=== PATIENT | male | born 1965 | race Caucasian/White ===

== ENCOUNTER 2016-07-27 00:46 | Emergency (ER) | payer OTHER ==
[~2016-07-27 00:46] MED LIST: ANT12.5 PO
[2016-07-27 01:58] LABS: BASOPHIL % 1.6 % (0-2); PLATELET COUNT 160 x10^3mcL (130-400); RED CELL DISTRIBUTION WIDTH 12.4 % (11.5-14.5)
[2016-07-27 02:05] LABS: CALCIUM 8.5 mg/dL (8.5-10.1); CHLORIDE SERUM 104 mmol/L (98-107); CREATININE SERUM 0.9 mg/dL (0.7-1.3); GFR1 > 60 mL/min; GLUCOSE SERUM 109 mg/dL (74-106); POTASSIUM SERUM 3.7 mmol/L (3.5-5.1); SODIUM SERUM 138 mmol/L (136-145)
[2016-07-27 02:10] LABS: ALKALINE PHOSPHATASE 115 U/L (46-116); ALT/SGPT 32 U/L (16-63); AST/SGOT 30 U/L (15-37); BILIRUBIN TOTAL 0.36 mg/dL (0.20-1.00); TOTAL PROTEIN, SERUM 7.3 g/dL (6.4-8.2)
[2016-07-27 02:18] LABS: CK-MB 1.1 ng/mL (0-3.6)
[2016-07-27 04:28] VITALS: BP 138/989
[2016-07-28] MEDS ORDERED: PEPCID20 MG PO (16:32)
[2016-07-28] MEDS ORDERED: NAPROSYN500 MG PO (16:49)
== END 2016-07-27 04:28 | disposition home or self-care (01) ==
LOC: ED 00:46
PROVIDERS: Emergency Medicine
DX: R07.89 Other chest pain (principal)
CPT/HCPCS: Q0092

== ENCOUNTER 2016-07-27 12:34 | Inpatient (IN) | payer OTHER ==
[~2016-07-27] VITALS: Ht 177.8 cm; Wt 79.4 kg
[2016-07-27 13:47] LABS: BASOPHIL % 0.5 % (0-2); CALCIUM 8.9 mg/dL (8.5-10.1); CARBON DIOXIDE 25.4 mmol/L (21-32); CHLORIDE SERUM 105 mmol/L (98-107); CREATININE SERUM 0.9 mg/dL (0.7-1.3); GFR1 > 60 mL/min; GLUCOSE SERUM 114 mg/dL (74-106); PLATELET COUNT 159 x10^3mcL (130-400); POTASSIUM SERUM 3.7 mmol/L (3.5-5.1); RED CELL DISTRIBUTION WIDTH 13.4 % (11.5-14.5); SODIUM SERUM 140 mmol/L (136-145)
[2016-07-27 13:56] LABS: ALBUMIN 4.2 g/dL (3.4-5.0); ALKALINE PHOSPHATASE 100 U/L (46-116); ALT/SGPT 37 U/L (16-63); AST/SGOT 24 U/L (15-37); BILIRUBIN TOTAL 0.54 mg/dL (0.20-1.00); TOTAL PROTEIN, SERUM 7.8 g/dL (6.4-8.2)
[2016-07-27 15:38] VITALS: BP 127/92
[2016-07-27 16:55] LABS: microscopic required? YES; urine erythrocyte TRACE (NEGATIVE)
[2016-07-27 17:07] LABS: CHOLESTEROL/HDL RATIO 3.7; MAGNESIUM 2.2 mg/dL (1.8-2.4); PHOSPHOROUS 3.2 mg/dL (2.5-4.9)
[2016-07-27 17:15] LABS: T3 TOTAL 1.32 ng/mL
[2016-07-27 17:16] LABS: FREE T4 1.07 ng/dL (0.76-1.46); FREE THYROXINE INDEX 2.8 ug/dL (1.4-4.5); T4(THYROXINE) 8.6 ug/dL (4.7-13.3)
[2016-07-27 18:22] LABS: AMPHETAMINE QUAL UR NONE DETECTED (NEG <=1000)
[2016-07-27 20:57] VITALS: BP 104/70
[2016-07-28 06:05] VITALS: BP 90/56
[2016-07-28 06:38] LABS: BASOPHIL % 0.6 % (0-2); PLATELET COUNT 147 x10^3mcL (130-400)
[2016-07-28 06:51] LABS: CALCIUM 8.7 mg/dL (8.5-10.1); CARBON DIOXIDE 25.9 mmol/L (21-32); CHLORIDE SERUM 107 mmol/L (98-107); CREATININE SERUM 0.9 mg/dL (0.7-1.3); GFR1 > 60 mL/min; GLUCOSE SERUM 94 mg/dL (74-106); MAGNESIUM 2.1 mg/dL (1.8-2.4); PHOSPHOROUS 3.2 mg/dL (2.5-4.9); POTASSIUM SERUM 4.5 mmol/L (3.5-5.1); SODIUM SERUM 140 mmol/L (136-145)
[2016-07-28 08:48] VITALS: BP 106/70
[2016-07-28 12:13] VITALS: BP 116/76; BP 117/67
[2016-07-28 16:12] VITALS: BP 115/84
[2016-07-28] MEDS ORDERED: PEPCID20 MG PO (16:32)
[2016-07-28 16:47] VITALS: BP 115/84
[2016-07-28] MEDS ORDERED: NAPROSYN500 MG PO (16:49)
== END 2016-07-28 17:20 | disposition home or self-care (01) | DRG 243 ==
LOC: ED 12:34 → DU 14:06
PROVIDERS: Emergency Medicine; ADMIT Family Medicine
DX: K21.9 Gastro-esophageal reflux disease without esophagitis (principal); N17.0 Acute kidney failure with tubular necrosis; E78.5 Hyperlipidemia, unspecified; F17.210 Nicotine dependence, cigarettes, uncomplicated; Z68.25 Body mass index [BMI] 25.0-25.9, adult
CPT/HCPCS: 80307; 83880; 84439; J7030

== ENCOUNTER 2019-12-03 12:29 | Emergency (ER) | payer OTHER, SELFPAY ==
[~2019-12-03] VITALS: Ht 177.8 cm; Wt 72.6 kg
[~2019-12-03 12:29] MED LIST changes: +NAPROSYN500 MG PO; +PEPCID20 MG PO
[2019-12-03 12:30] VITALS: BP 127/85; Ht 177.8 cm; Wt 72.6 kg
== END 2019-12-03 16:00 | disposition home or self-care (01) ==
LOC: ED 12:29
DX: J02.9 Acute pharyngitis, unspecified (principal); Z20.828 Contact with and (suspected) exposure to other viral communicable diseases
CPT/HCPCS: U0003-CS